=== PATIENT | female | born 1975 | race Two or more races ===

== ENCOUNTER 2019-02-19 09:56 | Outpatient (CLI) | payer OTHER ==
[2019-02-19] MEDS ORDERED: DIATR MEGLU/DIATRIZOATE SODIUM 120 ML BOTTLE (GASTROGRAPHIN) ONE (10:07)
== END 2019-02-19 23:59 | disposition home or self-care (01) ==
LOC: RAD 09:56
PROVIDERS: ATTEND Internal Medicine Nephrology
DX: K22.4 Dyskinesia of esophagus (principal); Z98.84 Bariatric surgery status
CPT/HCPCS: 74246; Q9963